=== PATIENT | male | born 1965 | race Caucasian/White ===

== ENCOUNTER 2020-01-22 10:16 | Day surgery (SDC) | payer OTHER, SELFPAY ==
[2020-01-20 11:25] VITALS: BMI 32.8
[2020-01-22] VITALS (7 sets, daily range): BP systolic 111–141; BP diastolic 68–94; PULSE 52–64; RESP 16–18; TEMP 36.1–36.5; O2SAT 92–99
[2020-01-22 11:35] LABS: Coronavirus 19 IgG Antibody Negative (Negative); Coronavirus 19 IgM Antibody Negative (Negative)
[2020-01-22 12:35] LABS: POC Glucose,Bedside 117 (70-110)
--- NOTE | 2020-01-22 13:09 | P.PN_ITS ---
[facility] Anesthesia Checklist - Patient Identification Patient Identification: Arm Band - Structural Data Admitted From: Home Planned Operative Procedure/s: egd Consent for Planned Operative Procedure(s) Verified: Yes Verified Documents: Surgical Consent, History and Physical - NPO Status Verified Time NPO: 00:00 - Additional verifications Anesthesia Reactions: No - Airway Assessment C-Spine Mobility Assessed: Yes (mp2) TMJ Mobility Assessed: Yes Dentition: Good Dentition - Neurological Assessment Level of Consciousness: Awake, Alert - Anesthesia Plan Anesthesia Risk discussed: Yes Anesthesia Plan: Verified ASA Class: III Anesthesia Type: MAC [facility] History I have reviewed the patient's past medical history: Yes Medical History: Reports:: Coronary Artery Disease, Diabetes Mellitus Type 2, Hyperlipidemia, Hypertension, Lung Disease (taz) Denies:: Cancer, Diabetes Mellitus Type 1, Internal Pacemaker, MRSA, Seizures *Have you ever received a pneumonia vaccine?: No *Have you received a flu vaccine this season?: Yes Anesthesia experience/problems:: nac Other Surgeries: Yes: Coronary Stent, Other. No: Pacemaker Amputation: No Fractures: No - *Social History Last grade of school completed: Advanced degree Smoking Status: Never smoker Alcohol Intake: never Substance Use Type: denies use *Occupational Status:: employed Housing: house Household Members: spouse *Travel in the last 8 weeks: None Family Hx:: No significant family history
--- NOTE | 2020-01-22 13:23 | HMH.PROC ---
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 He had been on pantoprazole 40 mg p.o. twice daily, sucralfate and GI cocktail. He did have cardiac evaluation and was found to have additional coronary artery disease and had 1 additional coronary stent placed in the circumflex artery (drug-eluting stent). His symptoms did not improve and he continued to have symptoms. I did recommend Reglan and to increase this to 10 mg p.o. before meals and at bedtime. I also recommended a fiber bowel regimen (MiraLAX plus Konsyl) and Iberogast. He often requires a GI cocktail that certainly helps. He has had more bloating, belching and gnawing sensation. He does get some intermittent dysphagia. He had been on Dexilant more recently. He did have the double contrast upper GI series that showed gastritis. His prior H. pylori testing was negative. A 13 mm barium tablet passed very easily from the esophagus into the stomach there was a very small traction esophageal diverticulum. There was smooth esophageal mucosa. Procedure: Prior to the procedure, a history and physical exam was performed, and patient's medications and allergies were reviewed. The risks, benefits and alternatives of the sedation and procedure were discussed with the patient. All questions were answered and informed consent was obtained. The patient was brought to the procedure room. Patient identification and proposed procedure were verified by the physician and the nurse. The patient was placed in a left lateral decubitus position and the scope was passed under direct vision. Throughout the procedure, the patient's blood pressure, pulse, and oxygen saturations were monitored continuously. The upper GI endoscopy was accomplished without difficulty. The patient tolerated the procedure well. Findings: The scope was passed directly into the upper esophagus and advanced to the third portion of the duodenum. The post bulbar duodenum and duodenal bulb were normal with normal mucosa and conniventes. The scope was withdrawn through a normal duodenal bulb and pylorus into the stomach. There was moderate bile reflux with linear reactive gastropathy of the antrum. There were multiple gastric fundic gland polyps of the body and fundus of the stomach. The largest polyp was removed via cold biopsy. There was minimal heme identified but this polypectomy site was closed with a single Endo Clip. A very small biopsy was taken from the antrum to rule out H. pylori versus reactive gastropathy. Upon retroflexion there was no significant hiatal hernia. The scope was then withdrawn into the esophagus. There was no evidence of reflux esophagitis or Vasquez's. There were strong tertiary contractions and evidence of moderate esophageal dysmotility/esophageal dyskinesia. There was a small traction diverticulum in the mid esophagus. There appeared to be very faint varices. The remainder of the esophageal mucosa was normal. Impression: 1. Nonerosive GERD with moderate esophageal dysmotility (esophageal dyskinesia) 2. Bile reflux with linear reactive gastropathy of antrum 3. Gastric fundic gland polyps (multiple) Plan: I do feel that the patient has functional GERD and esophageal hypersensitivity. We will discuss additional treatment options. I would continue promotility therapy and treatment for the hypersensitivity. I do not feel that this is classic acid reflux/GERD. I do feel that these are fundic gland polyps (related to PPI therapy). We will check the biopsy. I wi
== END 2020-01-22 14:20 | disposition home or self-care (01) ==
PROVIDERS: PCP Physician Assistant; Visit Provider Internal Medicine Gastroenterology
PROC: 0DJ08ZZ Inspection of Upper Intestinal Tract, Via Natural or Artificial Opening Endoscopic (ICD-10-PCS; CPT 43235; principal; 2020-01-22 12:00)
DX: K21.9 Gastro-esophageal reflux disease without esophagitis (principal); K22.2 Esophageal obstruction; K31.9 Disease of stomach and duodenum, unspecified; K31.7 Polyp of stomach and duodenum; I10 Essential (primary) hypertension; I25.10 Atherosclerotic heart disease of native coronary artery without angina pectoris; G47.33 Obstructive sleep apnea (adult) (pediatric); E11.9 Type 2 diabetes mellitus without complications; Z79.82 Long term (current) use of aspirin; Z79.899 Other long term (current) drug therapy; Z88.2 Allergy status to sulfonamides
CPT/HCPCS: 43239; 82962; 86328